=== PATIENT | female | born 1985 | race Caucasian/White ===

== ENCOUNTER 2021-07-29 08:07 | Outpatient (CLI) | payer OTHER ==
--- NOTE | 2021-07-29 13:17 | MRI Report ---
PROCEDURE: Lumbar Spine W/O INDICATIONS: LUMBAR RADICULOPATHY TECHNIQUE: Noncontrast sagittal T1 spin echo and T2 fast echo, sagittal STIR, axial T1 and T2 fast spin echo thr ough the lumbar spine. In cases with scoliosis, additional coronal T2 fast spin echo may be performe d. COMPARISON: None. FINDINGS: Image quality: Diagnostic Alignment and Curvature: Mild levoconvex scoliotic curvature is seen. No significant AP alignment abnormality can be seen. Bone Marrow: Marrow is of normal overall signal. No acute vertebral body compression fractures. Spinal Cord: Conus medullaris terminates at the L1 level. Visualized cord demonstrates normal signa l and size. Paraspinous Soft Tissues: No paravertebral masses. There is a simple appearing 1.7 cm cyst along th e medial aspect of the right kidney. T12-L1: Normal in appearance. L1-L2: Normal in appearance. L2-L3: Normal in appearance. L3-L4: Normal in appearance. L4-L5: The disc height is well-preserved. There is loss of disc signal seen. Mild disc bulge is seen, which is slightly eccentric to the right. There is a right posterior annular fissure seen, as o n series 4 and 1 image 15 and on series 6 and 1 image 12. No significant neural foraminal or central canal narrowing can be seen. L5-S1: Note is made of an annular fissure posteriorly. No significant neural foraminal or central canal narrowing can be seen. IMPRESSION: Mild lower lumbar spine degenerative changes are seen. No significant neural foraminal or central canal narrowing can be seen. Mild levoconvex scoliotic curvature is seen. Reviewed by: Kelby Philip MD on 07/29/2021 12:16 PM [place] Approved by: Kelby Philip MD on 07/29/2021 12:16 PM [facility] Station ID: [id number]
== END 2021-07-29 08:08 | disposition home or self-care (01) ==
LOC: DI 08:07
PROVIDERS: ATTEND Student in an Organized Health Care Education/Training Program
DX: M51.16 Intervertebral disc disorders with radiculopathy, lumbar region (principal); M51.17 Intervertebral disc disorders with radiculopathy, lumbosacral region